=== PATIENT | female | born 1985 | race Caucasian/White ===

== ENCOUNTER 2017-12-15 16:00 | Emergency (ER) | payer BC, MEDICAID ==
[2017-12-15 16:01] VITALS: BMI 36.6
[2017-12-15 16:16] VITALS: RESP 18
--- NOTE | 2017-12-15 16:58 | ED PDOC ---
Arrival/HPI - General Chief Complaint: Upper Extremity Problem/Injury Time Seen by Provider: 12/15/17 16:31 Historian: Patient - History of Present Illness Narrative History of Present Illness (Text): 12/15/17 17:00 32-year-old female presents today with a one-week history of left-sided chest pain and left arm pain and back pain. Patient states she's been having occasional shortness of breath that has been ongoing since prior to the onset of arm, chest and back pain. Patient states she has PCOS and is on control pills. She denies any recent travel. Patient describes the pain as achy burning sensation. pt states pain worsening in the back and arm if she holds her arm down at her side. pt states pain resolves if she flexes her arm and holds it at 90 degrees or elevates it. pt states the majority of the pain is in the left side of the upper back and radiates into the left arm. Patient states she was seen at urgent care center and was sent into the emergency room for further evaluation. Patient denies abdominal pain. No nausea or vomiting. She denies dizziness or weakness. Patient denies any trauma or injury. No other complaints Time/Duration: 1 week Symptom Onset: Gradual Symptom Course: Worsening Quality: Aching, Burning Severity Level: 6 Past Medical History - Provider Review Nursing Documentation Reviewed: Yes - Travel History Have you recently traveled outside [place] w/in the past 3 mons?: No - Tetanus Immunization Tetanus Immunization: Unknown - Cardiac Hx Cardiac Disorders: No - Pulmonary Hx Respiratory Disorders: No - Neurological Hx Neurological Disorder: No - HEENT Hx HEENT Disorder: No - Renal Hx Renal Disorder: No - Endocrine/Metabolic Hx Endocrine Disorders: No Other/Comment: PCOS - Hematological/Oncological Hx Blood Disorders: No - Integumentary Hx Dermatological Disorder: No - Musculoskeletal/Rheumatological Hx Musculoskeletal Disorders: No - Gastrointestinal Hx Gastrointestinal Disorders: No - Genitourinary/Gynecological Hx Genitourinary Disorders: Yes (PCOS) - Psychiatric Hx Psychophysiologic Disorder: No Hx Substance Use: No Family/Social History - Physician Review Nursing Documentation Reviewed: Yes Family/Social History: Unknown Family HX Smoking Status: Never Smoked Hx Alcohol Use: Yes Frequency of alcohol use: Socially Hx Substance Use: No Allergies/Home Meds Allergies/Adverse Reactions: Allergies No Known Allergies Allergy (Verified 12/15/17 16:15) Home Medications: Home Meds Medication Instructions Recorded Confirmed Norethindrone-E.estradiol-Iron 1 tab PO DAILY 10/21/15 12/15/17 [Lomedia 24 Fe 1 mg-20 Mcg Tab] Review of Systems - Review of Systems Constitutional: absent: Fatigue, Fevers ENT: absent: Sore Throat, Sinus Congestion Respiratory: absent: SOB, Cough Cardiovascular: Chest Pain. absent: Palpitations Gastrointestinal: absent: Abdominal Pain, Vomiting, Anorexia Genitourinary Female: absent: Dysuria, Frequency, Hematuria Musculoskeletal: Back Pain. absent: Arthralgias, Neck Pain Skin: absent: Rash, Pruritis Neurological: absent: Headache, Dizziness Psychiatric: absent: Anxiety, Depression, Suicidal Ideation Physical Exam Vital Signs Reviewed: Yes Vital Signs Temp Pulse Resp BP Pulse Ox 12/15/17 16:13 97.5 F L 95 H 18 128/80 98 Temperature: Afebrile Blood Pressure: Normal Pulse: Regular Respiratory Rate: Normal Appearance: Positive for: Well-Appearing, Non-Toxic, Comfortable Pain Distress: None Mental Status: Positive for: Alert and Oriented X 3 - Systems Exam Head: Present: Atraumatic Mouth: Present: Moist Mucous Membranes Neck: Present: Normal Range of Motion, Paraspinal Tenderness (+ left sided trapezius tenderness; ). No: MIDLINE TENDERNESS Respiratory/Chest: Present: Clear to Auscultation, Good Air Exchange. No: Respiratory Distress, Accessory Muscle Use, Wheezes, Retracting, Rhonchi, Tender to Palpation Cardiovascular: Present: Regular Rate and Rhythm, Normal S1, S2. No: Murmurs Abdomen: Present: Normal Bowel Sounds. No: Tenderness, Distention, Peritoneal Signs, Rebound, Guarding Back: Present: Normal Inspection. No: CVA Tenderness, Midline Tenderness, Paraspinal Tenderness Upper Extremity: Present: Normal ROM, NORMAL PULSES, Neurovascularly Intact, Capillary Refill < 2s. No: Tenderness, Swelling, Erythema Lower Extremity: Present: Normal Inspection, Normal ROM. No: CALF TENDERNESS Neurological: Present: GCS=15, Speech Normal, Gait Normal Skin: Present: Warm, Dry, Normal Color. No: Rashes Psychiatric: Present: Alert, Oriented x 3 Medical Decision Making ED Course and Treatment: 12/15/17 17:02 pt with chest pain , back pain and left arm pain x 1 week, worse with movement. sent in from Urgent care center. cbc; wnl cmp; wnl trop: wnl BNP wnl D-DIMER; 207 ekg; sinus tachycardia at 114 b/m cxr: wnl pt reassessment; pt feeling better after medications; vitals stable. pt with left back/neck and left arm pain with tenderness over left trapezius; improved with medications; will d/c home to f/u with PMD. I discussed all results in depth with the patient. I've advised the patient that she has back pain and neck pain that radiates into the left arm and may be related to muscle strain or cervical radiculopathy. I've advised follow-up with the primary care physician within the next 2 days. Due to the patient's obesity and advised the patient to follow-up with a rocket motor mechanic as well although at this time I do not believe that her pain is cardiac in nature. Patient verbalizes understanding of discharge instructions and need for immediate followup. case was discussed with dr. Trent in depth. Impression; back pain, neck pain, arm pain, chest pain Motrin every 6 hours as needed for pain Flexeril one tablet every 8 hours as needed for muscle spasms colon may cause drowsiness Increase fluids. Follow-up with primary care physician within the next 2 days Follow up with the rocket motor mechanic within the next 2 days. Follow up with the orthopedist within the next 2 days. Return immediately if symptoms worsen or persist or if new concerning symptoms develop Reassessment Condition: Re-examined, Improved - RAD Interpretation Radiology Orders: 12/15/17 16:32 CHEST PORTABLE [RAD] Stat Disposition/Present on Arrival - Present on Arrival Any Indicators Present on Arrival: No History of DVT/PE: No History of Uncontrolled Diabetes: No Urinary Catheter: No History of Decub. Ulcer: No History Surgical Site Infection Following: None - Disposition Have Diagnosis and Disposition been Completed?: Yes Diagnosis: Back pain, Neck pain, Arm pain, Chest pain Disposition: HOME/ ROUTINE Disposition Time: 18:25 Patient Plan: Discharge Patient Problems: Current Active Problems Problem Status Onset Arm pain Acute Back pain Acute Chest pain Acute Neck pain Acute Condition: GOOD Discharge Instructions (ExitCare): Chest Pain, Neck Pain, Muscle and Bone Pain (DC), Chest Pain (ED) Additional Instructions: Motrin every 6 hours as needed for pain Flexeril one tablet every 8 hours as needed for muscle spasms colon may cause drowsiness Increase fluids. Follow-up with primary care physician within the next 2 days Follow up with the rocket motor mechanic within the next 2 days. Follow up with the orthopedist within the next 2 days. Return immediately if symptoms worsen or persist or if new concerning symptoms develop Prescriptions: Cyclobenzaprine [Cyclobenzaprine HCl] 10 mg PO Q8 #10 tab Ibuprofen [Motrin] 600 mg PO Q6H PRN #20 tab PRN Reason: pain/fever reduction Referrals: Gena Quesada MD [Medical Doctor] - Follow up with primary [facility] [Outside] - Follow up with primary Tej Fabian MD [Staff Provider] - Follow up with primary Forms: [facility] [facility] ([place]), WORK NOTE
[2017-12-15 17:28] LABS: PH,URINE 5.5 (4.7-8.0); URINE BILIRUBIN NEGATIVE (NEGATIVE); URINE BLOOD NEGATIVE (NEGATIVE); URINE GLUCOSE (UA) NEGATIVE (NEGATIVE); URINE LEUKOCYTE ESTERASE NEGATIVE Leu/uL (NEGATIVE); URINE PROTEIN TRACE mg/dL (<30 mg/dL); URINE UROBILINOGEN 0.2 E.U./dL (<1 E.U./dL)
[2017-12-15 17:29] LABS: BASO # 0.01 K/mm3 (0.0-2.0); BASO % 0.1 % (0.0-3.0); EOS # 0.2 (0.0-0.7); EOS % 1.4 % (1.5-5.0); GRAN # 7.45 (1.4-6.5); GRAN % 63.5 % (50.0-68.0); HEMOGLOBIN 14.5 g/dL (12.0-16.0); LYMPH # 3.2 (1.2-3.4); LYMPH % 26.9 % (22.0-35.0); MEAN CELL VOLUME 86.1 fl (80.0-105.0); MEAN CORPUSCULAR HEMOGLOBIN 29.3 pg (25.0-35.0); MEAN PLATELET VOLUME 11.4 fl (7.0-11.0); MONO % 8.1 % (1.0-6.0); RBC 4.95 10^6/uL (3.5-6.1); RED CELL DISTRIBUTION WIDTH 13.9 % (11.5-14.5); WHITE BLOOD COUNT 11.7 10^3/ul (4.5-11.0)
[2017-12-15 17:30] LABS: URINE APPEARANCE CLEAR (CLEAR); URINE COLOR YELLOW (YELLOW)
[2017-12-15 17:37] LABS: ALBUMIN 4.1 g/dL (3.0-4.8); ALT/SGPT 43 U/L (7-56); AST/SGOT 35 U/L (14-36); BLOOD UREA NITROGEN 14 mg/dL (7-21); CALCIUM 9.4 mg/dL (8.4-10.5); GFR NON-AFRICAN AMERICAN > 60; LIPASE 83 U/L (23-300)
[2017-12-15 17:45] LABS: URINE BACTERIA MANY (NEG); URINE RBC 0 - 2 /hpf (0-2)
[2017-12-15 17:47] LABS: URINE EPITHELIAL CELLS MANY /hpf (0-5)
[2017-12-15 17:49] LABS: B-TYPE NATRIURETIC PEPTIDE 227 pg/mL (0-450); TROPONIN I < 0.01 ng/mL
[2017-12-15] MEDS ORDERED: Sodium Chloride 0.9% 1,000 ML IV STA (18:10)
--- NOTE | 2017-12-15 18:10 | RAD ---
Date of service: 12/15/2017 HISTORY: chest pain/left arm pain COMPARISON: No prior. FINDINGS: LUNGS: No active pulmonary disease. PLEURA: No significant pleural effusion identified, no pneumothorax apparent. CARDIOVASCULAR: Normal. OSSEOUS STRUCTURES: No significant abnormalities. VISUALIZED UPPER ABDOMEN: Normal. OTHER FINDINGS: None. IMPRESSION: No active disease.
[2017-12-15 20:05] VITALS: BP 121/78; PULSE 90; TEMP 98.3; O2SAT 100
--- NOTE | 2017-12-16 11:14 | CARD ---
APPROVED REPORT Date of service: 12/15/2017 EKG Measurement Heart [id number] <Conclusion> Sinus tachycardia Otherwise normal ECG
== END 2017-12-15 20:05 | disposition home or self-care (01) ==
LOC: ED 16:00
DX: M54.2 Cervicalgia (principal); M54.9 Dorsalgia, unspecified; M79.602 Pain in left arm; R07.9 Chest pain, unspecified
CPT/HCPCS: 71045; 80053; 81001; 82550; 83615; 83690; 83880; 84484; 85025; 85378; 93005; 96361; 96374; 99284; J1885; J7030